=== PATIENT | male | born 2005 | race Caucasian/White ===

== ENCOUNTER 2024-01-13 21:38 | Emergency (ER) | payer OTHER, MEDICAID ==
[~2024-01-13] VITALS: Ht 185.4 cm; Wt 87.0 kg
[2024-01-13 21:43] VITALS: O2SAT 100
[2024-01-13 21:47] VITALS: BP 147/78; PULSE 87; RESP 16; TEMP 98.3; O2SAT 99
== END 2024-01-14 00:51 | disposition left against medical advice (07) ==
LOC: ER 21:38
DX: R05.9 Cough, unspecified (principal); Z53.21 Procedure and treatment not carried out due to patient leaving prior to being seen by health care provider; Z20.822 Contact with and (suspected) exposure to COVID-19
CPT/HCPCS: 87804 ×2; 87426; Z7610